=== PATIENT | female | born 2000 | race Caucasian/White ===

== ENCOUNTER 2020-02-20 21:43 | Day surgery (SDC) | payer OTHER ==
[2020-02-20 22:12] VITALS: BP 116/65; TEMP 98.4; BMI 26.4
[2020-02-20] MEDS ORDERED: hydrALAZINE 20 MG/ML VIAL SLOW IVP PRN (22:26)
[2020-02-20 22:58] LABS: Amnisure Internal Control QC ACCEPTABLE (ACCEPTABLE); Amnisure Test No Membranes Rupture (No Rupture)
--- NOTE | 2020-02-20 23:23 | PDOC.BPN ---
- Brief Progress Note CX closed Due to some CTX, I will order 1 liter ASure was negative
[2020-02-20] MEDS ORDERED: Lactated Ringer's 1,000 ML IV SCH (23:30)
--- NOTE | 2020-02-20 23:32 | HP ---
TIME OF EVALUATION: Roughly 2225 hours to 2234 hours. LOCATION: Antepartum bed 2. CHIEF COMPLAINT: Back spasm at 32 weeks. The patient of Dr. West. HISTORY OF PRESENT ILLNESS: This is a 19-year-old, G2, P0, SAB 1, who is at 32 weeks and 4 days with an EDC of April 12, who presents with low back spasm. She denies fever or vaginal bleeding, but she does state that she has had some persistent vaginal discharge, but denies a large gush of water or watery discharge. She has good movement. She denies any COVID contacts or symptoms. REVIEW OF SYSTEMS: Complete review of systems was checked and is otherwise negative unless specified in the HPI. PAST MEDICAL HISTORY: Only significant for anxiety and depression. PAST SURGICAL HISTORY: [place] teeth. ALLERGIES: NONE. SOCIAL HISTORY: Negative for alcohol, tobacco, or drug use. FAMILY HISTORY: Noncontributory. PHYSICAL EXAMINATION: VITAL SIGNS: Blood pressure is 116/65. She is afebrile with a temperature of 98.4, pulse is 81. GENERAL: She is in no acute distress. ABDOMEN: I checked the patient, and her abdomen is soft and nontender. I performed a perineal examination and had the patient cough and Valsalva, and there was no gross evidence of leakage or vaginal bleeding. The perineum was dry. Interventions ordered. I have ordered a VPIII and an AmniSure just to rule out rupture with her history of "vaginal discharge." External monitor, heart tones are reactive for gestational age without deceleration and they do have moderate variability. Contractions are very low level and irregular, but there are some low-level contractions noted. ASSESSMENT: This is a 19-year-old, G2, P0, at 32 weeks and 4 days with suspected discomforts of . I do not suspect pyelonephritis as she looks clinically well and is afebrile. No evidence of acute illness at this time. PLAN: 1. I have ordered a VPIII and an AmniSure. 2. I have explained these to the patient. 3. I do not suspect she is actively laboring, and I do not suspect pyelonephritis at this time. 4. I did order a cervical check, but we will do this after her vaginal swabs are collected. Lissa, the patient's nurse, will perform a cervical exam. 5. I have explained these findings to the patient. Job ID: [id number] EVAN
== END 2020-02-21 00:55 | disposition home or self-care (01) ==
LOC: L&D/OP 21:43
PROVIDERS: ATTEND Obstetrics & Gynecology
DX: O99.89 Other specified diseases and conditions complicating pregnancy, childbirth and the puerperium (principal); R25.2 Cramp and spasm; O47.03 False labor before 37 completed weeks of gestation, third trimester; O99.343 Other mental disorders complicating pregnancy, third trimester; F41.9 Anxiety disorder, unspecified; F32.9 Major depressive disorder, single episode, unspecified; Z3A.32 32 weeks gestation of pregnancy
CPT/HCPCS: 84112; 87480; 87510; 87660; 96360; 99284

== ENCOUNTER 2020-02-28 17:37 | Observation (INO) | payer OTHER ==
[2020-02-28 18:14] VITALS: BMI 24.7
[2020-02-28] MEDS ORDERED: hydrALAZINE 20 MG/ML VIAL SLOW IVP PRN ×2 (19:09→19:39)
[2020-02-28 19:22] LABS: Bilirubin Negative (Negative); Blood, Urine Negative (Negative); Clarity Turbid (Clear); Glucose, Urine (Dipstick) Normal (Negative); Ketone, Urine 150 mg/dL (Negative); Leukocyte 500 Leu/uL (Negative); Nitrite Negative (Negative); Protein, Urine (Dipstick) 70 mg/dL (Neg-Trace); RBC/HPF 0-3 HPF (0-3); Specific Gravity, Urine 1.017 (1.002-1.036); Squamous Epithelial None Seen HPF (0-3); Urobilinogen Normal mg/dL (Less than 2); WBC/HPF Greater than 50 HPF (0-3)
[2020-02-28 19:23] LABS: Bacteria/HPF 1+ HPF (None Seen)
[2020-02-28] MEDS ORDERED: Acetaminophen 500 MG TAB PO PRN (19:39)
[2020-02-28] MEDS ORDERED: Ondansetron PF 4 MG/2 ML Vial IVP PRN (19:39)
[2020-02-28 19:44] LABS: #Lymphocytes 0.7 thou/uL (1.20-3.40); #Monocytes 0.7 thou/uL (0.11-0.59); #Neutrophils 9.7 thou/uL (1.40-6.50); %Basophils 0.3 % (0.0-1.0); %Lymphocytes 6.4 % (28.0-48.0); %Monocytes 6.5 % (0.0-4.0); %Neutrophils 86.7 % (31.0-61.0); Mean Corpuscular HGB CONC 33.5 g/dL (32.0-36.0); Mean Corpuscular Hemoglobin 27.7 pg (25.0-35.0); Mean Corpuscular Volume 82.8 fL (78.0-98.0); Mean Platelet Volume 8.9 fL (7.4-10.4); Platelet Count 196 thou/uL (130-400); RBC Distribution Width 12.7 % (11.5-14.5); Red Blood Cell (RBC) Count 4.32 mill/uL (4.00-5.20); White Blood Cell (WBC) Count 11.2 thou/uL (4.8-10.8)
[2020-02-28] MEDS ORDERED: Sodium Chloride 0.9% 1,000 ML IV SCH (19:45)
[2020-02-28] MEDS: cefTRIAXone\\ROCEPHIN 1 GM in Sodium Chloride 0.9% 100 ML IVPB SCH (20:00)
[2020-02-28 21:16] LABS: Syphilis Antibody Nonreactive (Nonreactive); Syphilis Antibody Index 0.04 S/CO (<1.00 Non-Reactive)
[2020-02-28] MEDS: Sodium Chloride 0.9% 1,000 ML IV SCH (21:30)
[2020-02-28 23:50] LABS: HBSAg Index 0.14 S/CO (0-0.99); Hep B Surf Ag Non-Reactive S/CO (NonReactive)
[2020-02-29] MEDS: Sodium Chloride 0.9% 1,000 ML IV SCH (01:20)
--- NOTE | 2020-02-29 03:22 | HP ---
PRIMARY OB: Otf West MD CHIEF COMPLAINT: Nausea, vomiting, and diarrhea. HISTORY OF PRESENT ILLNESS: The patient is a 19-year-old G2, P0 female with an intrauterine at 33 weeks and 5 days, presenting with a 2-day history of diarrhea and a 1-day history of nausea and vomiting. The patient reports she has had about three stools per day, watery in nature, the last couple of days and has had one today. She reports today she has had nausea with a couple episodes of vomiting. She also reports back pain and some urinary urgency. She denies fever. She denies cough, headache, chest pain, shortness of breath, constipation, any new rashes, hip problems, knee problems, muscle weakness. She denies vaginal bleeding or change in discharge. PAST MEDICAL HISTORY: Anxiety and depression. PAST SURGICAL HISTORY: She has had wisdom teeth extracted. ALLERGIES: NO KNOWN DRUG ALLERGIES. SOCIAL HISTORY: Denies drug, alcohol, or tobacco use. OB LABS: As recorded in [facility]; blood type is O negative. Hepatitis B surface antigen is negative. HIV is negative. Syphilis is negative. REVIEW OF SYSTEMS: Per HPI. PHYSICAL EXAMINATION: VITAL SIGNS: Blood pressure is 109/62, heart rate of 80, respiratory rate of 18, and temperature 98.6. GENERAL: She appears to be in no acute distress. She is alert, oriented, cooperative, and pleasant to interact with. HEENT: Head is normocephalic and atraumatic. LUNGS: Clear to auscultation bilaterally. HEART: Has a regular rate and rhythm. ABDOMEN: Gravid, soft, nontender. She does have some CVA tenderness with right more tender than left. EXTREMITIES: Nontender and nonedematous. : Has been deferred. DIAGNOSTIC DATA: heart tracing shows the fetus with a baseline in the 140s with moderate long-term variability, positive 15 x 15 accelerations, no decelerations. Tocometer showing some contractions, but not felt by the patient. LABORATORY STUDIES: CBC, white count is 11.2, hemoglobin is 12.0, hematocrit is 35.8, platelets 196,000, neutrophil percentage 86.7. Urine is turbid, 150 ketones, 500 leukocyte esterase, greater than 50 white blood cells, no squamous cells seen, 1+ bacteria. ASSESSMENT AND PLAN: The patient is a 19-year-old female with urinary tract infection and likely ascending early kidney infection. The patient is being admitted to observation overnight as we give her IV Rocephin and aggressive IV hydration with a total of 2-3 L by morning. If the patient continues to remain afebrile and is feeling better tomorrow, the patient may be discharged home on antibiotics. I have updated her primary provider, Dr. Otf West, who will be assuming care tomorrow. Job ID: [id number]
[2020-02-29] MEDS: cefTRIAXone\\ROCEPHIN 1 GM in Sodium Chloride 0.9% 100 ML IVPB SCH ×2 (08:23→20:14)
--- NOTE | 2020-02-29 19:43 | PDOC.PP ---
Post Progress Note PO intake tolerated: yes Flatus: yes Ambulation: yes Vital Signs (12 hours) Temp Pulse Resp BP Pulse Ox 02/29/20 17:01 97.8 F 65 16 94/54 L 99 02/29/20 11:37 98.1 F 83 20 99/55 L 98 02/29/20 08:27 98.9 F 70 20 105/56 L 97 Weight Admit Weight 2.384 oz Weight 2.384 oz - Physical Examination General: NAD Cardiovascular: no m/r/g, RRR Respiratory: clear to auscultation bilaterally Abdominal: no distention Extremities: negative homans (B) Neurological: no gross focal deficits Psychiatric: A&Ox3, normal affect (Patient is admitted for pyelonephritis, on IV antibiotics, currently afebrile, and flank pain improved. Will attempt to complete 48 hours of IV antibiotics, transition to PO antibiotics, and DC Home tomorrow night vs. Thursday.) Result Diagrams: 02/28/20 19:37 Additional Labs: Post Labs Blood Type O NEGATIVE 02/28/20 20:26 Hep Bs Antigen Non-Reactive S/CO (NonReactive) 02/28/20 20:26
[2020-03-01 05:55] LABS: Band 2 % (5-11); Eosinophils 1 % (0-10); Hemoglobin 11.3 g/dL (12.0-16.0); Hypochromia SLIGHT = 6-15 cells (100X) (0-5/hpf); Lymphocytes 20 % (28-48); MDiff Complete? YES; Mean Corpuscular HGB CONC 31.8 g/dL (32.0-36.0); Mean Corpuscular Hemoglobin 26.4 pg (25.0-35.0); Mean Corpuscular Volume 82.9 fL (78.0-98.0); Mean Platelet Volume 9.2 fL (7.4-10.4); Monocytes 6 % (0-4); Neutrophil 71 % (31-61); Platelet Count 211 thou/uL (130-400); Platelet Morphology Comment Appears Adequate; RBC Distribution Width 12.6 % (11.5-14.5); Red Blood Cell (RBC) Count 4.27 mill/uL (4.00-5.20); White Blood Cell (WBC) Count 6.2 thou/uL (4.8-10.8)
[2020-03-01] MEDS: cefTRIAXone\\ROCEPHIN 1 GM in Sodium Chloride 0.9% 100 ML IVPB SCH ×2 (07:57→20:06)
[2020-03-01 17:36] VITALS: TEMP 98.6
--- NOTE | 2020-03-01 17:39 | PDOC.PP ---
Post Progress Note Vital Signs (12 hours) Temp Pulse Resp BP Pulse Ox 03/01/20 16:55 98.6 F 63 12 94/51 L 97 03/01/20 11:49 98 F 82 20 106/57 L 97 03/01/20 08:09 97.8 F 66 20 104/56 L 98 03/01/20 06:40 97.9 F 61 15 111/56 L Weight Admit Weight 2.384 oz Weight 2.384 oz - Physical Examination General: NAD Cardiovascular: no m/r/g, RRR Respiratory: clear to auscultation bilaterally Abdominal: + bowel sounds, no distention Extremities: negative homans (B) Neurological: no gross focal deficits Psychiatric: A&Ox3, normal affect Result Diagrams: 03/01/20 05:10 Additional Labs: Post Labs Blood Type O NEGATIVE 02/28/20 20:26 Hep Bs Antigen Non-Reactive S/CO (NonReactive) 02/28/20 20:26 - Assessment/Plan Patient appears to be stable and doing well, with no further symptoms of pyelonephritis. Will DC to home after 8pm dose, and start po ABX. F/U next week in clinic.
[2020-03-01 20:42] VITALS: BP 95/52
== END 2020-03-01 22:12 | disposition home or self-care (01) ==
LOC: L&D/OP 17:37 → 3SW 21:00
PROVIDERS: ADMIT Obstetrics & Gynecology; ATTEND Obstetrics & Gynecology
DX: O21.2 Late vomiting of pregnancy (principal); O99.89 Other specified diseases and conditions complicating pregnancy, childbirth and the puerperium; R19.7 Diarrhea, unspecified; O23.43 Unspecified infection of urinary tract in pregnancy, third trimester; Z3A.33 33 weeks gestation of pregnancy
CPT/HCPCS: 36415; 81001; 85025; 86780; 86850; 86870; 86900; 86901; 87086; 87340; 96361; 96365; 96366; G0378; J0696; J3490

== ENCOUNTER 2020-03-14 13:12 | Emergency (ER) | payer OTHER ==
[2020-03-15 13:47] LABS: SARS-CoV-2 MS2 Positive; SARS-CoV-2 N Gene Negative; SARS-CoV-2 S Gene Negative; SARS-CoV-2 by NAA Not Detected (NotDetected); SARS-CoV-2 orf1ab Negative
== END 2020-03-14 13:51 | disposition home or self-care (01) ==
LOC: ERS 13:12
DX: Z20.828 Contact with and (suspected) exposure to other viral communicable diseases (principal)
CPT/HCPCS: 87635; 99283; U0003